=== PATIENT | male | born 1960 | race Caucasian/White ===

== ENCOUNTER → 2020-09-03 09:30 | Outpatient (BNVA) | payer MEDICAID, SELFPAY | PROVIDERS: PCP Internal Medicine; Visit Provider Urology | DX: N40.1 Benign prostatic hyperplasia with lower urinary tract symptoms (principal); R35.1 Nocturia | CPT/HCPCS: 51798; 99212 ==

== ENCOUNTER 2021-09-02 10:55 | Outpatient (REF) | payer MEDICAID, SELFPAY ==
[2021-09-02 12:33] LABS: Prostate Specific Antigen 1.92 ng/mL (<0.05-4.0)
== END 2021-09-02 10:56 | disposition home or self-care (01) ==
LOC: HO.LAB 10:55
PROVIDERS: PCP Internal Medicine; Visit Provider Urology
DX: N40.1 Benign prostatic hyperplasia with lower urinary tract symptoms (principal); N13.8 Other obstructive and reflux uropathy; Z12.5 Encounter for screening for malignant neoplasm of prostate
CPT/HCPCS: 36415; 84153

== ENCOUNTER → 2021-09-07 09:10 | Outpatient (BNVA) | payer MEDICAID, SELFPAY | PROVIDERS: PCP Internal Medicine; Visit Provider Urology | DX: N41.1 Chronic prostatitis (principal); N40.1 Benign prostatic hyperplasia with lower urinary tract symptoms; R35.1 Nocturia | CPT/HCPCS: 51798; 99212 ==

== ENCOUNTER → 2021-10-21 08:18 | Outpatient (BNVA) | payer MEDICAID, SELFPAY | PROVIDERS: PCP Internal Medicine; Visit Provider Urology | DX: N40.1 Benign prostatic hyperplasia with lower urinary tract symptoms (principal); R35.1 Nocturia; N41.1 Chronic prostatitis | CPT/HCPCS: 51798; 99212 ==

== ENCOUNTER → 2021-11-04 08:15 | Outpatient (BNVA) | payer MEDICAID, SELFPAY | PROVIDERS: PCP Internal Medicine; Visit Provider Urology | DX: N41.1 Chronic prostatitis (principal) ==

== ENCOUNTER → 2022-06-16 13:07 | Outpatient (BNVA) | payer MEDICAID, SELFPAY | PROVIDERS: PCP Internal Medicine; Visit Provider Urology | DX: N40.1 Benign prostatic hyperplasia with lower urinary tract symptoms (principal); R35.1 Nocturia | CPT/HCPCS: 51798; 99212 ==

== ENCOUNTER 2022-09-06 08:54 | Outpatient (REF) | payer MEDICAID, SELFPAY | END 2022-09-06 08:55 | disposition home or self-care (01) | LOC: HO.LAB 08:54 | PROVIDERS: PCP Internal Medicine; Visit Provider Urology | DX: N40.1 Benign prostatic hyperplasia with lower urinary tract symptoms (principal); Z12.5 Encounter for screening for malignant neoplasm of prostate | CPT/HCPCS: 36415; 84153 ==

== ENCOUNTER → 2022-09-14 09:16 | Outpatient (BNVA) | payer MEDICAID, SELFPAY | PROVIDERS: PCP Internal Medicine; Visit Provider Urology ==

== ENCOUNTER 2023-03-20 08:45 | Outpatient (AMB) | payer OTHER, SELFPAY ==
--- NOTE | 2023-03-20 09:00 | MHC.OFFVIS ---
Intake Intake Visit Reasons: 6m follow up Intake Note: Patient is Present for Follow Up PVR Urology Medication: Terazosin, Finasteride Antibiotic Allergies: None Blood Thinners: None Pharmacy: [facility] PVR: 28ml Allergies mel[facility]am [facility] Adverse Reaction (Severe, Verified 03/20/23 09:02) Heartburn Medication List - Last Reconciled 03/20/23 by Jamison Combs MD atorvastatin 40 mg PO DAILY finasteride 5 mg PO DAILY metronidazole 500 mg PO BID 14 days metronidazole 500 mg PO BID 7 days minoxidil 2.5 mg PO DAILY 90 days naproxen (Naprosyn) 500 mg PO DAILY PRN 11 days pravastatin 80 mg PO DAILY prednisone 20 mg PO DAILY 5 days sulfamethoxazole-trimethoprim 800-160 mg (Bactrim DS) 1 tab PO BID 14 days terazosin 2 mg PO DAILY 90 days HPI HPI Comments History of Present Illness Details [place] is a very pleasant male. He is a patient of Dr. Bell. He seen for the following urologic conditions - lower urinary tract symptoms - chronic prostatitis Grumbling subclinical prostatitis Has not risen to level requiring antibiotics Seems to be triggered on Sundays Continue good response to terazosin 2 mg Discussed hair loss and use of finasteride and minoxidil Patient requesting minoxidil prescription Will call once considered finasteride Chronic prostatitis Symptoms present for 3-6 months Microgen 11/06 Staphylococcus broad resistance - S flagyl Responded to linezolid Has had constipation in the past as trigger Lower urinary tract symptom Good response to terazosin 2 mg PSA 09/06 1.9, 09/07 2.1 Initial symptoms nocturia 3, weak stream, incomplete emptying Hair loss Finasteride/Minoxodil option [facility] Medical History Benign prostatic hyperplasia with lower urinary tract symptoms Review of Systems Const Denies chills and Denies fever(s) Card Reports no additional complaints and Denies syncope Resp Denies cough GI Denies abdominal pain and Denies heartburn Reports as per HPI and Denies change in libido Neuro Denies syncope Psych Denies change in libido Endo Denies change in libido Physical Exam Const General: cooperative, healthy appearing, comfortable and no acute distress Orientation/consciousness: patient oriented x3 HEENT Face and sinus: Yes normal facial exam Mouth: moist mucous membranes Neck Neck: Yes normal visual inspection, Yes full ROM and Yes trachea midline Chest Chest palpation & inspection: normal inspection of the chest Resp Effort & Inspection: normal respiratory effort, able to speak in complete sentences and no respiratory distress GI Inspection: Yes normal to inspection Back/Spine/Pelvis Cervical Spine: normal cervical lordosis Thoracic/Lumbar Spine: thoracic and lumbar spine normal to inspection Skin General skin exam: no rashes or lesions noted Neuro General: patient oriented x3, gait normal, tone normal and moves all extremities Extrem General: Yes normal to inspection and Yes capillary refill normal Office Procedures Post Void Residual Post Residual Void Post Void Residual (PVR): 28 [id number] Void Residual by ultrasound Results AMB Urinalysis, Automated UA Leukoctes 0 Manny/uL Last Edit by Munira Quesada [facility] on 03/20/23 09:11 UA Nitrite Negative Last Edit by uMnira Quesada [facility] on 03/20/23 09:11 UA Urobilinogen 0.2 mg/dL Last Edit by Munira Quesada [facility] on 03/20/23 09:11 UA Protein 0 mg/dL Last Edit by Munira Quesada [facility] on 03/20/23 09:11 UA pH 6.0 Last Edit by Munira Quesada [facility] on 03/20/23 09:11 UA Blood 0 Scooter/uL Last Edit by Munira Quesada [facility] on 03/20/23 09:11 UA Specific [place] 1.020 Last Edit by Munira Quesada [facility] on 03/20/23 09:11 UA Ketone Negative Last Edit by Munira Quesada [facility] on 03/20/23 09:11 UA Bilirubin 0 mg/dL Last Edit by Munira Quesada [facility] on 03/20/23 09:11 UA Glucose 0 mg/dL Last Edit by Munira Quesada [facility] on 03/20/23 09:11 Assessment & Plan Assessment & Plan (1) Hair loss: Code(s): L65.9 - Nonscarring hair loss, unspecified (2) Chronic prostatitis: Comment: Staph haemolyticus Microgen Code(s): N41.1 - Chronic prostatitis Plan Prescription for right Orders: Orders AMB Urinalysis Automated Today Z13.9 - Encounter for screening, unspecified AMB Post Void Residual by ultrasound Today N40.1 - Benign prostatic hyperplasia with lower urinary tract symptoms Medications: New minoxidil 2.5 mg PO DAILY 90 days 90 tabs 3RF L65.9 - Nonscarring hair loss, unspecified Refilled terazosin 2 mg PO DAILY 90 caps 1RF 90 days L65.9 - Nonscarring hair loss, unspecified Patient Instructions: Imaging studies, laboratory and physical exam results were discussed and reviewed in detail. No major barriers to patient understanding were identified. An opportunity to ask questions regarding the treatment plan was provided. All questions were answered. The patient expressed understanding and agreement with the above treatment plan. The patient is aware they should contact our office by phone for worsening of their current condition or the appearance of new urologic symptoms. Compliance is encouraged with any medications and followup testing that is ordered. It is a privilege to participate in the urologic care of your patient. If you have any questions or concerns regarding treatment for the above conditions, or other urologic issues, please do not hesitate to contact me. The office telephone contact is [phone]. This note is constructed using voice recognition software. While every effort has been made to ensure accuracy egg gatherer errors may have been included. Yours sincerely, Dr Jamison Combs MD, [facility] - Urology Providers of Expert, Compassionate Care for the Genitourinary System Coding Level of Care Code Est Pt Level 4 (74605) Diagnoses Hair loss L65.9 Chronic prostatitis N41.1 CPT Codes Post Residual Void - PVR CPT Code: 70368-Bonm Void Residual by ultrasound ([id number])
== END 2023-03-20 09:24 | disposition home or self-care (01) ==
PROVIDERS: PCP Internal Medicine; Visit Provider Urology
DX: N41.1 Chronic prostatitis (principal); L65.9 Nonscarring hair loss, unspecified; Z13.9 Encounter for screening, unspecified
CPT/HCPCS: 99214

== ENCOUNTER → 2023-03-20 08:45 | Outpatient (BNVA) | payer OTHER, SELFPAY | PROVIDERS: Visit Provider Urology | DX: N41.1 Chronic prostatitis (principal); L65.9 Nonscarring hair loss, unspecified | CPT/HCPCS: 51798; 81003; 99212 ==

== ENCOUNTER 2024-03-20 09:07 | Outpatient (AMB) | payer OTHER, SELFPAY ==
--- NOTE | 2024-03-20 09:13 | MHC.OFFVIS ---
Intake Visit Reasons: 1y follow up-PVR Intake Note: Patient is Present for Follow Up PVR Urology Medication: Terazosin Antibiotic Allergies: None Blood Thinners: None PVR: 28ml'S TODAY'S PVR:0ML'S Anesthesiologist Attending Required: No Allergies meloxicam [From [employer]] Adverse Reaction (Severe, Verified 03/20/24 09:15) Heartburn HPI Comments Details: [place] is a very pleasant male. He is a patient of Dr. Bell. He seen for the following urologic conditions - lower urinary tract symptoms - chronic prostatitis Stable Continue good response to terazosin 2 mg Add Naprosyn to take for 3 days when has flare 12 month follow-up Chronic prostatitis Symptoms present for 3-6 months Microgen 11/06 Staphylococcus broad resistance - S flagyl Responded to linezolid Has had constipation in the past as trigger Lower urinary tract symptom Good response to terazosin 2 mg PSA 09/06 1.9, 09/07 2.1 Initial symptoms nocturia 3, weak stream, incomplete emptying Hair loss Finasteride/Minoxodil option [facility] Medical History Benign prostatic hyperplasia with lower urinary tract symptoms Review of Systems Const Denies chills and Denies fever(s) Card Reports no additional complaints and Denies syncope Resp Denies cough GI Denies abdominal pain and Denies heartburn Reports as per HPI and Denies change in libido Neuro Denies syncope Psych Denies change in libido Endo Denies change in libido Physical Exam Const General: cooperative, healthy appearing, comfortable and no acute distress Orientation/consciousness: patient oriented x3 HEENT Face and sinus: Yes normal facial exam Mouth: moist mucous membranes Neck Neck: Yes normal visual inspection, Yes full ROM and Yes trachea midline Chest Chest palpation & inspection: normal inspection of the chest Resp Effort & Inspection: normal respiratory effort, able to speak in complete sentences and no respiratory distress GI Inspection: Yes normal to inspection Back/Spine/Pelvis Cervical Spine: normal cervical lordosis Thoracic/Lumbar Spine: thoracic and lumbar spine normal to inspection Skin General skin exam: no rashes or lesions noted Neuro General: patient oriented x3, gait normal, tone normal and moves all extremities Extrem General: Yes normal to inspection and Yes capillary refill normal Office Procedures Post Void Residual Post Residual Void Post Void Residual (PVR): 0 [id number] Void Residual by ultrasound Results AMB Urinalysis, Automated UA Leukoctes 15 Manny/uL Last Edit by FAITH Vu on 03/20/24 09:25 UA Nitrite Negative Last Edit by FAITH Vu on 03/20/24 09:25 UA Urobilinogen 0.2 mg/dL Last Edit by FAITH Vu on 03/20/24 09:25 UA Protein 15 mg/dL Last Edit by FAITH Vu on 03/20/24 09:25 UA pH 6.0 Last Edit by FAITH Vu on 03/20/24 09:25 UA Blood 0 Scooter/uL Last Edit by FAITH Vu on 03/20/24 09:25 UA Specific [place] 1.020 Last Edit by FAITH Vu on 03/20/24 09:25 UA Ketone Negative Last Edit by FAITH Vu on 03/20/24 09:25 UA Bilirubin 0 mg/dL Last Edit by FAITH Vu on 03/20/24 09:25 UA Glucose 0 mg/dL Last Edit by FAITH Vu on 03/20/24 09:25 Results Reviewed Results Reviewed: Laboratory Last Values Urine pH (Auto) 6.0 03/20/24 09:22 Specific [place] (Auto) 1.020 03/20/24 09:22 Urine Protein (Auto) 15 mg/dL 03/20/24 09:22 Glucose (UA)(Auto) 0 mg/dL 03/20/24 09:22 Urine Ketones (Auto) Negative 03/20/24 09:22 Urine Blood (Auto) 0 Scooter/uL 03/20/24 09:22 Urine Nitrite (Auto) Negative 03/20/24 09:22 Urine Bilirubin (Auto) 0 mg/dL 03/20/24 09:22 Urine Urobilinogen (Auto) 0.2 mg/dL 03/20/24 09:22 Leukocyte Esterase (Auto) 15 Manny/uL 03/20/24 09:22 Assessment & Plan Assessment & Plan (1) Benign prostatic hyperplasia with lower urinary tract symptoms: Code(s): N40.1 - Benign prostatic hyperplasia with lower urinary tract symptoms Category: Medical (2) Chronic prostatitis: Comment: Jani haemolyticus Microgen Code(s): N41.1 - Chronic prostatitis Category: Medical Plan 12 month follow-up Orders: Orders AMB Urinalysis Automated Today Z13.9 - Encounter for screening, unspecified Prostate Specific Antigen 364 Days N41.1 - Chronic prostatitis Medications: New naproxen (Naprosyn) 500 mg PO Q12H 30 tabs 0RF pain N20.0 - Calculus of kidney, N41.1 - Chronic prostatitis Patient Instructions: Imaging studies, laboratory and physical exam results were discussed and reviewed in detail. No major barriers to patient understanding were identified. An opportunity to ask questions regarding the treatment plan was provided. All questions were answered. The patient expressed understanding and agreement with the above treatment plan. The patient is aware they should contact our office by phone for worsening of their current condition or the appearance of new urologic symptoms. Compliance is encouraged with any medications and followup testing that is ordered. It is a privilege to participate in the urologic care of your patient. If you have any questions or concerns regarding treatment for the above conditions, or other urologic issues, please do not hesitate to contact me. The office telephone contact is [phone]. This note is constructed using voice recognition software. While every effort has been made to ensure accuracy software systems analyst errors may have been included. Yours sincerely, Dr Jamison Combs MD, [facility] - Urology Providers of Expert, Compassionate Care for the Genitourinary System Coding Level of Care Code Est Pt Level 4 (05397) Diagnoses Benign prostatic hyperplasia with lower urinary tract symptoms N40.1 Chronic prostatitis N41.1 CPT Codes Post Residual Void - PVR CPT Code: 46651-Wwef Void Residual by ultrasound ([id number])
== END 2024-03-20 10:00 | disposition home or self-care (01) ==
PROVIDERS: PCP Internal Medicine; Visit Provider Urology
DX: N40.1 Benign prostatic hyperplasia with lower urinary tract symptoms (principal); N41.1 Chronic prostatitis; Z13.9 Encounter for screening, unspecified
CPT/HCPCS: 99214

== ENCOUNTER → 2024-03-20 09:07 | Outpatient (BNVA) | payer OTHER, SELFPAY | PROVIDERS: PCP Internal Medicine; Visit Provider Urology | DX: N41.1 Chronic prostatitis (principal); N40.1 Benign prostatic hyperplasia with lower urinary tract symptoms; N20.0 Calculus of kidney; Z79.899 Other long term (current) drug therapy | CPT/HCPCS: 51798; 81003; 99212 ==

== ENCOUNTER 2025-03-11 06:38 | Outpatient (REF) | payer OTHER, SELFPAY ==
--- OUTSIDE RECORDS SUMMARY | 2025-03-11 06:41 | XMS_ITS | Encounter Summary ---
Author Organization [employer] Address [address] [facility] [address] [place] [address] Care Team Providers Care Traveling Phlebotomist Name Role Phone Unavailable Primary Care Provider Unavailabl e Encounter Details Date Type Department Care Team (Latest Contact Info) Description 11/08/2021 Abstract C CONVERSIONS Dental, Provider, DDS Social History Tobacco Use Types Packs/Day Years Used Date Smoking Tobacco: Never Assessed Sex and Gender Information Value Date Recorded Sex Assigned at Male 04/17/2022 10:25 AM EDT Legal Sex Male 10:25 AM EDT Gender Identity Male 04/17/2022 10:25 AM EDT Sexual Orientation Straight 04/17/2022 10 :25 AM EDT documented as of this encounter Plan of Treatment Not on file documented as of this encounter Visit Diagnoses Not on filedocumented in this encounter
--- OUTSIDE RECORDS SUMMARY | 2025-03-11 06:41 | XMS_ITS | Encounter Summary ---
Author Organization [email or web address] Address [address] [facility] [address] [place] [address] Care Team Providers Care Stone Paver Name Role Phone Unavailable Primary Care Provider Unavailabl e Encounter Details Date Type Department Care Team (Latest Contact Info) Description 11/15/2021 Abstract C CONVERSIONS Dental, Provider, DDS Social [...]
--- OUTSIDE RECORDS SUMMARY | 2025-03-11 06:41 | XMS_ITS | Clinical Summary ---
Author Organization [employer] Address [address] [facility] [address] [place] [address] Care Team Providers Care Outsole Skiver Name Role Phone Unavailable Primary Care Provider Unavailabl e Allergies No known active allergies Medications terazosin (Hytrin) 2 MG capsule Take 2 mg by mouth in the morning. 12/14/2022 Active atorvastatin (Lipitor) 40 MG tablet Take 40 mg by mouth in the morning. 11/28/2022 Active Encounters Date Type Department Care Team Description 02/03/[address] [facility] [address], [place] [phone] Valery Gil DDS 01/20/2025 Telephone [facility] [address] [place] [address] Valery Gil DDS from Last 3 Months Social History Tobacco Use Types Packs/Day Years Used Date Smoking Tobacco: Former Cigarettes Smokeless Tobacco: Former Tobacco Cessation:Counseling Given: Not Answered Alcohol Use Standard Drinks/Week Comments Never 0 (1 standard drink = 0.6 oz pur e alcohol) Sex and Gender Information Value Date Recorded Sex Assigned at Male 04/17/2022 10:25 AM EDT Legal Sex Male 10:25 AM EDT Gender Identity Male 04/17/2022 10:25 AM EDT Sexual Orientation Straight 04/17/2022 10 :25 AM EDT Last Filed Vital Signs Vital Sign Reading Time Taken Comments Blood Pressure 120/82 03/07/2023 10:19 AM EDT Pulse 69 02/26/2023 11:04 AM EDT Temperature - - Respiratory Rate - - Oxygen Saturation - - Inhaled Oxygen Concentration - - Weight - - Height - - Body Mass Index - - Plan of Treatment Health Maintenance Due Date Last Done Comments Anal Pap 1961 CT Colonography 1961 Colonoscopy 1961 Colorectal Cancer Screening 1961 Depression Screening 1961 FIT DNA/Cologuard 1961 FIT 1961 FOBT 1961 HIV Screening 1961 Lipid Panel 1961 SDOH Screening 1961 Sigmoidoscopy 1961 Disability Screening 1961 Alcohol/Substance Use Screening 1973 Hepatitis C Screening 09/20/1979 Hepatitis A Vaccines (1 of 2 - Risk 2-dose series) 1980 Zoster Vaccines (1 of 2) 09/20/2011 Hepatitis B Vaccines (1 of 3 - Risk 3-dose series) 2021 Dental Prophylaxis 05/18/2022 11/15/2021 Dental Oral Exam 09/27/2023 03/27/2023, , 04/18/2021 Dental X-Ray: Bitewings 03/28/2024 03/27/20, 05/05/2022, 04/18/2021 Dental X-Ray: Full Mouth 04/19/2024 04/18/2021 Tobacco Screening 04/25/2024 04/25/2023 COVID-19 Vaccine (3 - season) 2025 12/08/2020, 11/10/2020 Influenza Vaccine (#1) 2025 , 04/06/2023, 05/24/2020, Additional history exists DTaP/Tdap/Td Vaccines (2 - Td or Tdap) 02/24/2032 02/23/2022, 04/16/2018, 05/28/2017, Additional history exists RSV Patients and Patients Aged 60 years or older (1 - 1-dose 75+ series) 2036 Pneumococcal Vaccine: 50+ Years Completed 04/06/2023, 06/26/2011 HIB Vaccines Aged Out No longer eligi ble based on patient's age to complete this topic HPV Vaccines Aged Out No longer eligi ble based on patient's age to complete this topic IPV Vaccines Aged Out No longer eligi ble based on patient's age to complete this topic Meningococcal B Vaccine Aged Out No l onger eligible based on patient's age to complete this topic Meningococcal Vaccine Aged Out No jake elan eligible based on patient's age to complete this topic RSV under 20 months Aged Out No longe r eligible based on patient's age to complete this topic Rotavirus Vaccines Aged Out No longer eligible based on patient's age to complete this topic Procedures Procedure Name Priority Date/Time Associated Diagnosis Comments BITEWINGS - 4 RADIOGRAPHIC IMAGES Routine 03/27/2023 8:00 AM EDT PERIODIC ORAL EVALUATION - ESTABLISHED PATIENT Routine 03/27/2023 8:00 AM EDT PROPHYLAXIS - ADULT Routine 11/15/2021 1 2:00 AM EDT INTRAORAL - COMPLETE SERIES OF RADIOGRAPHIC IMAGES Routine 04/18/2021 12:00 AM EDT from Last 3 Months or Most Recently Relevant to Health Maintenance Insurance [address] [place] [address] [facility] MEDICAID STAND ADULT [address] [place] [id number] [facility] MEDICAID STAND ADULT
--- OUTSIDE RECORDS SUMMARY | 2025-03-11 06:41 | XMS_ITS | Encounter Summary ---
Author Organization [employer] Address [address] [facility] [address] [place] [address] Care Team Providers Care Associate Professor Of Philosophy Name Role Phone Unavailable Primary Care Provider Unavailabl e Encounter Details Date Type Department Care Team (Latest Contact Info) Description 05/05/2022 Abstract [facility] CONVERSIONS Dental, Provider, DDS Social History Tobacco [...]
[2025-03-11 08:27] LABS: Prostate Specific Antigen 2.59 ng/mL (<0.05-4.0)
== END 2025-03-11 06:39 | disposition home or self-care (01) ==
LOC: HO.LAB 06:38
PROVIDERS: PCP Internal Medicine; Visit Provider Urology
DX: N41.1 Chronic prostatitis (principal)
CPT/HCPCS: 36415; 84153

== ENCOUNTER 2025-03-20 08:56 | Outpatient (AMB) | payer OTHER, SELFPAY ==
--- NOTE | 2025-03-20 08:58 | A.OFFVIS_ITS ---
Intake Visit Reasons: 1y/PSA Intake Note: patient presents today for: 1yr/PSA urology medications: naproxen, terazosin blood thinners: none labs done 03/11/25: PSA 2.59 today's PVR: 0,ls Machine Ii Trimmer Required: No Accompanied by: Self / Same As Patient Allergies meloxicam (From [employer]) Adverse Reaction (Severe, Verified 03/20/24 09:15) Heartburn HPI Comments Details: [place] is a very pleasant male. He is a patient of Dr. Bell. He seen for the following urologic conditions - lower urinary tract symptoms - chronic prostatitis Yearly follow-up Continue good response to terazosin 2 mg daily for lower urinary tract symptoms Using Naprosyn for 3 days when has prostatitis flare UA today negative PVR 0 Does report occasional dizziness. Might be related to terazosin 2 mg. Trial Flomax for 1 month. He will check his blood pressure. If slightly better would advise stay on this medication. Chronic prostatitis Symptoms present for 3-6 months Microgen 11/06 Staphylococcus broad resistance - S flagyl Responded to linezolid Has had constipation in the past as trigger Lower urinary tract symptom Good response to terazosin 2 mg PSA 09/06 1.9, 09/07 2.1, 03/12 2.6 Initial symptoms nocturia 3, weak stream, incomplete emptying Hair loss Finasteride/Minoxodil option [facility] Medical History Benign prostatic hyperplasia with lower urinary tract symptoms Review of Systems Const Denies chills and Denies fever(s) Card Reports no additional complaints and Denies syncope Resp Denies cough GI Denies abdominal pain and Denies heartburn Reports as per HPI and Denies change in libido Neuro Denies syncope Psych Denies change in libido Endo Denies change in libido Physical Exam Const General: cooperative, healthy appearing, comfortable and no acute distress Orientation/consciousness: patient oriented x3 HEENT Face and sinus: Yes normal facial exam Mouth: moist mucous membranes Neck Neck: Yes normal visual inspection, Yes full ROM and Yes trachea midline Chest Chest palpation & inspection: normal inspection of the chest Resp Effort & Inspection: normal respiratory effort, able to speak in complete sentences and no respiratory distress GI Inspection: Yes normal to inspection Back/Spine/Pelvis Cervical Spine: normal cervical lordosis Thoracic/Lumbar Spine: thoracic and lumbar spine normal to inspection Skin General skin exam: no rashes or lesions noted Neuro General: patient oriented x3, gait normal, tone normal and moves all extremities Extrem General: Yes normal to inspection and Yes capillary refill normal Office Procedures Post Void Residual Post Residual Void Post Void Residual (PVR): 0 [id number] Void Residual by ultrasound Results AMB Urinalysis, Automated UA Leukoctes 0 Manny/uL Last Edit by FAITH Conway on 03/20/25 09:19 UA Nitrite Negative Last Edit by FAITH Conway on 03/20/25 09:19 UA Urobilinogen 0.2 mg/dL Last Edit by FAITH Cnoway on 03/20/25 09:1 9 UA Protein 0 mg/dL Last Edit by FAITH Conway on 03/20/25 09:19 UA pH 6.0 Last Edit by FAITH Conway on 03/20/25 09:19 UA Blood 0 Scooter/uL Last Edit by FAITH Conway on 03/20/25 09:19 UA Specific [place] 1.015 Last Edit by FAITH Conway on 03/20/25 09: 19 UA Ketone Last Edit by FAITH Conway on 03/20/25 09:19 UA Bilirubin 0 mg/dL Last Edit by FAITH Conway on 03/20/25 09:19 UA Glucose 0 mg/dL Last Edit by FAITH Conway on 03/20/25 09:19 Assessment & Plan Assessment & Plan (1) Chronic prostatitis: Comment: Staph haemolyticus Microgen Code(s): N41.1 - Chronic prostatitis Category: Medical (2) Benign prostatic hyperplasia with lower urinary tract symptoms: Code(s): N40.1 - Benign prostatic hyperplasia with lower urinary tract symptoms Category: Medical (3) Nocturia associated with benign prostatic hyperplasia: Code(s): N40.1 - Benign prostatic hyperplasia with lower urinary tract symptoms; R35.1 - Nocturia Category: Medical Plan Twelve month follow-up PSA Orders: Orders AMB Post Void Residual by ultrasound Today N40.1 - Benign prostatic hyperplasia with lower urinary tract symptoms Prostate Specific Antigen 12 Months N40.1 - Benign prostatic hyperplasia with lower urinary tract symptoms AMB Urinalysis Automated Today Z13.9 - Encounter for screening, unspecified Medications: New tamsulosin (Flomax) 0.4 mg PO BEDTIME 30 tabs 1RF 30 days N40.1 - Benign prostatic hyperplasia with lower urinary tract symptoms Patient Instructions: This note is constructed using voice recognition software. While every effort has been made to ensure accuracy cornetist errors may have been included. Imaging studies, laboratory and physical exam results were discussed and reviewed in detail. No major barriers to patient understanding were identified. An opportunity to ask questions regarding the treatment plan was provided. All questions were answered. The patient expressed understanding and agreement with the above treatment plan. The patient is aware they should contact our office by phone for worsening of their current condition or the appearance of new urologic symptoms. Compliance is encouraged with any medications and followup testing that is ordered. It is a privilege to participate in the urologic care of your patient. If you have any questions or concerns regarding treatment for the above conditions, or other urologic issues, please do not hesitate to contact me. The office telephone contact is [phone]. Sincerely, Dr Jamison Combs MD, [facility] - Urology Compassionate Specialist Care for the Genitourinary System Coding Level of Care Code Est Pt Level 4 (47157) Complex EM visit Add On G2211 Diagnoses Chronic prostatitis N41.1 Benign prostatic hyperplasia with lower urinary tract symptoms N40.1 Nocturia associated with benign prostatic hyperplasia N40.1; R35.1 CPT Codes Post Residual Void - PVR CPT Code: 52394-Zlot Void Residual by ultrasound ([id number])
--- OUTSIDE RECORDS SUMMARY | 2025-03-20 09:23 | XMS_ITS | Encounter Summary ---
Author Organization [employer] Address [address] [facility] [address] [place] [address] Care Team Providers Care Manager User Interface Name Role Phone Unavailable Primary Care Provider [...]
--- OUTSIDE RECORDS SUMMARY | 2025-03-20 09:23 | XMS_ITS | Clinical Summary ---
Author Organization [employer] Address [address] [facility] [address] [place] [address] Care Team Providers Care Atm Servicer Name Role Phone Unavailable Primary Care Provider Unavailabl e Allergies No known active allergies Medications terazosin (Hytrin) 2 MG capsule Take 2 mg by mouth in the morning. 12/14/2022 Active atorvastatin (Lipitor) 40 MG tablet Take 40 mg by mouth in the morning. 11/28/2022 Active Encounters Date Type Department Care Team Description 02/03/2025 Telephone [facility] [address] [place], [place] [phone] Valery Gil DDS 01/20/2025 Telephone [facility] [address] [place] [address] Valery Gil DDS from Last 3 Months [...] Recently Relevant to Health Maintenance Insurance [address] [place] [address] D[facility]AL-[facility] MEDICAID STAND ADULT [address] [place] [id number] [facility]AL-[facility] MEDICAID STAND ADULT
--- OUTSIDE RECORDS SUMMARY | 2025-03-20 09:23 | XMS_ITS | Encounter Summary ---
Author Organization [employer] Address [address] [facility] [address] [place] [address] Care Team Providers Care Line Out Worker Name Role Phone Unavailable Primary Care Provider Unavailabl e Encounter Details Date Type Department Care Team (Latest Contact Info) Description 05/05/2022 Abstract [facility] CONVERSIONS Dental, Provider, DDS Social History [...]
--- OUTSIDE RECORDS SUMMARY | 2025-03-20 09:23 | XMS_ITS | Encounter Summary ---
Author Organization [employer] Address [address] [facility] [address] [place] [address] Care Team Providers Care Cordwainer Name Role Phone Unavailable Primary Care Provider Unavailabl e Encounter Details Date Type Department Care Team (Latest Contact Info) Description 11/08/2021 Abstract [facility] CONVERSIONS Dental, Provider, DDS Social History Tobacco [...]
== END 2025-03-20 09:21 | disposition home or self-care (01) ==
LOC: HO.HUSH 08:57
PROVIDERS: PCP Internal Medicine; Visit Provider Urology
DX: N41.1 Chronic prostatitis (principal); N40.1 Benign prostatic hyperplasia with lower urinary tract symptoms; R35.1 Nocturia
CPT/HCPCS: 99213

== ENCOUNTER → 2025-03-20 08:56 | Outpatient (BNVA) | payer OTHER, SELFPAY | PROVIDERS: PCP Internal Medicine; Visit Provider Urology | DX: N41.1 Chronic prostatitis (principal); N40.1 Benign prostatic hyperplasia with lower urinary tract symptoms; R35.1 Nocturia | CPT/HCPCS: 51798; 81003; 99212 ==